=== PATIENT | female | born 1995 | race Caucasian/White ===

== ENCOUNTER 2017-04-22 02:11 | Emergency (ER) | payer OTHER ==
[~2017-04-22] VITALS: Ht 182.9 cm; Wt 102.5 kg
[~2017-04-22 02:11] MED LIST: MOTRIN600 MG PO; SPRINTEC1 EACH PO; SYNTHROID75 MCG PO
[2017-04-22 03:13] LABS: EOSINOPHIL (%) 1.6 % (0-5); EOSINOPHIL COUNT 0.1 K/uL (0-0.3); HEMATOCRIT 43.1 % (36.0-46.0); IMMATURE GRANULOCYTE (%) 0.4 % (0.0-0.7); INSTRUMENT ABS NEUTROPHIL CT 4.3 K/uL; LYMPHOCYTE COUNT 2.3 K/uL (1.0-2.8); MCH 29.6 PG (29.0-34.0); MCHC 33.2 G/DL (30.0-36.0); MCV 89.2 FL (83-99); MEAN PLAT.VOLUME 10.6 uM^3 (9.5-12.4); MONOCYTE (%) 8.8 % (3-12); MONOCYTE COUNT 0.7 K/uL (0-0.8); NEUTROPHIL (%) 57.6 % (45-76); NEUTROPHIL COUNT 4.3 K/uL (1.8-6.4); PLATELET COUNT 239 K/uL (156-360); RBC DIS.WIDTH-CV 13.1 % (11.8-14.6); RBC DIS.WIDTH-SD 43.1 % (39-53); RED BLOOD COUNT 4.83 M/uL (3.80-5.20); WHITE BLOOD COUNT 7.4 K/uL (4.1-10.2)
[2017-04-22 03:20] LABS: INTERNAL CONTROL VALID? YES
[2017-04-22 03:25] LABS: CHLORIDE 103 mEq/L (99-109); SODIUM 141 mEq/L (136-147)
[2017-04-22 03:27] LABS: GLUCOSE 109 mg/dL (70-99)
[2017-04-22 03:28] LABS: ANION GAP 11 MEQ/L (2-14)
[2017-04-22 03:29] LABS: TOTAL BILIRUBIN 0.5 mg/dL (0.0-1.0)
[2017-04-22 03:30] LABS: ALKALINE PHOSPHATASE 69 IU/L (3-129)
[2017-04-22 03:31] LABS: GFR ESTIMATE (CALCULATED) > 59 mL/min/
[2017-04-22 03:32] LABS: UREA NITROGEN (BUN) 18 mg/dL (9-23)
[2017-04-22 07:10] LABS: APPEARANCE CLEAR/COLORLESS; RED CELL AREA COUNTED 18; RED CELL COUNT 7 /MM^3 (0-1); RED CELL DILUTION 1
[2017-04-22 07:11] LABS: WBC AREA COUNTED 18; WBC DILUTION 1; WHITE CELL COUNT 2 /MM^3 (0-5); WHITE CELL RAW COUNT 3
[2017-04-22 07:18] LABS: CSF EOSINOPHILS 0 % (0-25); MONO RAW COUNT 22; MONONUCLEAR WBC'S 96 % (50-90); POLY RAW COUNT 1; POLYNUCLEAR WBC'S 4 % (0-3)
[2017-04-22 08:08] VITALS: BP 112/70
== END 2017-04-22 08:09 | disposition home or self-care (01) ==
LOC: EME 02:11
PROVIDERS: Emergency Medicine
PROC: 009U3ZX Drainage of Spinal Canal, Percutaneous Approach, Diagnostic (ICD-10-PCS; principal; 2017-04-22)
DX: R51 Headache (principal); A69.20 Lyme disease, unspecified; F41.9 Anxiety disorder, unspecified; E06.3 Autoimmune thyroiditis; Z88.2 Allergy status to sulfonamides; Z88.0 Allergy status to penicillin
CPT/HCPCS: 70450; 80053; 82945; 84157; 84703; 85025; 87070; 87205; 89051; 99281; 99285; J1100; J1885; J2270; J2765; J7030

== ENCOUNTER 2017-07-24 09:17 | Emergency (ER) | payer OTHER ==
[~2017-07-24] VITALS: Ht 182.9 cm; Wt 109.5 kg
[2017-07-24] MEDS ORDERED: PEPCID20 MG PO (09:38)
[2017-07-24] MEDS ORDERED: PREDNISONE50 MG PO (09:38)
[2017-07-24] MEDS ORDERED: BENADRYL25 MG PO (09:38)
[2017-07-24 10:09] VITALS: BP 127/89
== END 2017-07-24 10:10 | disposition home or self-care (01) ==
LOC: EME 09:17
DX: T78.40XA Allergy, unspecified, initial encounter (principal); L50.9 Urticaria, unspecified; Z88.0 Allergy status to penicillin; Z88.2 Allergy status to sulfonamides; Z88.8 Allergy status to other drugs, medicaments and biological substances
CPT/HCPCS: 99281; 99283; J7512